=== PATIENT | female | born 1995 | race Caucasian/White ===

== ENCOUNTER 2017-11-07 09:30 | Emergency (ER) | payer OTHER, SELFPAY | END 2017-11-07 13:36 | disposition home or self-care (01) | PROVIDERS: Emergency Provider Emergency Medicine; Visit Provider Emergency Medicine | DX: R10.11 Right upper quadrant pain (principal); G89.29 Other chronic pain | CPT/HCPCS: 99284; 74022; 80053; 81003; 81015; 81025; 83690; 85025; 87086; 93005; 93010; 96374; 96375; 99058; C9113; J1885; J2060; J2270; J2405; J2550 ==